=== PATIENT | female | born 1980 | race Caucasian/White ===

== ENCOUNTER 2016-04-28 19:20 | Emergency (ER) | payer OTHER ==
[~2016-04-28] VITALS: Ht 162.6 cm; Wt 51.4 kg
[~2016-04-28 19:20] MED LIST: CIPRO 500MG TA500 MG PO; DOXYCYCLINE 10100 MG PO; EXCEDRIN1 TAB PO; FIORICET 325 MG1 TA1 PO; MAXALT10 MG PO; MAXALT5 MG PO; MIRENA52 MG IY; PHENERGAN 25 TA25 MG PO; ZYRTEC 10MG10 MG PO
[2016-04-28 19:28] VITALS: BP 103/70; TEMP 97.4
[2016-04-28 21:33] VITALS: PULSE 64
== END 2016-04-28 21:34 | disposition home or self-care (01) ==
LOC: COL.ER 19:20
DX: M54.6 Pain in thoracic spine (principal)

== ENCOUNTER 2016-06-08 16:42 | Emergency (ER) | payer OTHER ==
[~2016-06-08] VITALS: Ht 162.6 cm; Wt 51.4 kg
[2016-06-08 16:45] VITALS: BP 119/67; TEMP 98.6
[2016-06-08 18:31] VITALS: PULSE 66
== END 2016-06-08 18:31 | disposition home or self-care (01) ==
LOC: COL.ER 16:42
DX: J02.0 Streptococcal pharyngitis (principal)
CPT/HCPCS: J0561

== ENCOUNTER 2016-09-17 20:53 | Emergency (ER) | payer OTHER ==
[~2016-09-17] VITALS: Ht 160 cm; Wt 51.4 kg
[2016-09-17 20:54] VITALS: BP 103/65; PULSE 113; TEMP 98.1
[2016-09-17] MEDS ORDERED: ULTRAM 50MG TAB50 MG PO (21:38)
[2016-09-17] MEDS ORDERED: CIPRO 500MG TA500 MG PO (21:38)
[2016-09-17 21:59] LABS: PH 7 (5-8); SQUAMOUS EPITHELIAL 20-50 /hpf; URINE APPEARANCE Turbid; URINE BACTERIA Rare /hpf; URINE BILIRUBIN Negative (NEGATIVE); URINE BLOOD 2+ (NEGATIVE); URINE COLOR Yellow; URINE GLUCOSE Negative (NEGATIVE); URINE KETONE Negative (NEGATIVE); URINE UROBILINOGEN Negative (NEGATIVE)
[2016-09-17 22:00] LABS: URINE WBC >50 /hpf
== END 2016-09-17 22:20 | disposition home or self-care (01) ==
LOC: COL.ER 20:53
PROVIDERS: Physician Assistant
DX: N39.0 Urinary tract infection, site not specified (principal)

== ENCOUNTER 2019-07-10 16:00 | Emergency (ER) | payer OTHER ==
[~2019-07-10] VITALS: Ht 160 cm; Wt 59.1 kg
[~2019-07-10 16:00] MED LIST changes: +ULTRAM 50MG TAB50 MG PO
[2019-07-10 16:05] VITALS: TEMP 98.4
[2019-07-10] MEDS ORDERED: ALLEGRA 60MG TA60 MG (16:23)
[2019-07-10] MEDS ORDERED: IBU600 MG PO (16:24)
[2019-07-10 17:07] LABS: BASO # 0.1 (0.0-0.2); BASO % 0.9 % (0.0-2.0); EOS # 0.3 (0.0-0.7); EOS % 3.7 % (0-4.0); GRAN # 5.6 (1.4-6.5); GRAN % 66.7 % (42.2-75.2); HEMATOCRIT 39.6 % (37.0-47.0); HEMOGLOBIN 13.1 g/dl (12.5-16.0); LYMPH % 23.3 % (20.0-51.0); MEAN CELL VOLUME 91 fl (80.0-100.0); MEAN CORPUSCULAR HEMOGLOBIN 30 pg (27.0-31.0); MEAN CORPUSCULAR HGB CONC 33 g/dl (33.0-37.0); MEAN PLATELET VOLUME 10.7 fl (7.4-10.4); MONO # 0.4 (0.1-0.6); MONO % 5.2 % (1.7-9.3); PLATELET COUNT 248 K/mm3 (130-400); RED BLOOD COUNT 4.37 M/mm3 (4.10-5.30); REDCELL DISTRIBUTION WIDTH-CV 12.8 % (11.5-14.5)
[2019-07-10 17:12] LABS: ALANINE AMINOTRANSFERASE 13 U/L (4-34); ALBUMIN 4.2 gm/dL (3.5-5.0); ALKALINE PHOSPHATASE 58 U/L (50-136); ANION GAP 6 mmol/L (7-16); AST,SGOT 21 U/L (15-37); BILIRUBIN,TOTAL 0.5 mg/dL (0.0-1.0); BLOOD UREA NITROGEN 15 mg/dL (7-17); CALCIUM 9.4 mg/dL (8.4-10.2); CARBON DIOXIDE 29 mmol/L (22-30); CHLORIDE 101 mmol/L (98-107); CREATININE, serum 1.23 (0.52-1.25); GLUCOSE 102 mg/dL (74-106); SODIUM 136 mmol/L (137-145)
[2019-07-10 17:13] LABS: C-REACTIVE PROTEIN < 0.5 mg/dL (0.0-0.9)
[2019-07-10 17:40] VITALS: BP 108/77; PULSE 64
== END 2019-07-10 18:00 | disposition home or self-care (01) ==
LOC: COL.ER 16:00
PROVIDERS: Nurse Practitioner
DX: H57.02 Anisocoria (principal); Z88.6 Allergy status to analgesic agent; Z88.8 Allergy status to other drugs, medicaments and biological substances; Z88.5 Allergy status to narcotic agent
CPT/HCPCS: J1200; J1885; J2550; J2765; J7030